=== PATIENT | male | born 1970 | race Caucasian/White ===

== ENCOUNTER 2020-07-03 10:18 | Emergency (ER) | payer OTHER ==
[2020-07-03 10:29] VITALS: BP 110/72; TEMP 98.2
--- NOTE | 2020-07-03 10:48 | ED ---
Back Pain HPI - General Chief Complaint: Back Pain/Injury Stated Complaint: lower back pain Time Seen by Provider: 07/03/20 10:34 Source: patient Limitations: physical limitation - History of Present Illness Initial Comments: Patient is a 50-year-old male presenting to the emergency department with a chief complaint of back pain. Patient reports the pain started about 4 days ago while he was lifting an object to the upstairs floor. Patient states the pain has been gradually increasing severity and that movement seems to be exacerbating pain especially when he is going from a laying to a standing position. He denies taking any medication to alleviate his symptoms. He denies any saddle anesthesia, urinary retention with overflow incontinence or bowel incontinence. Denies any night sweats or chills. No history of prostate cancer. - Related Data Previous Rx's Medication Instructions Recorded Cyclobenzaprine [Flexeril] 10 mg PO TID PRN #15 tab 07/03/20 Allergies Allergy/AdvReac Type Severity Reaction Status Date / Time Penicillins Allergy Unknown Verified 07/03/20 10:29 Review of Systems ROS Statement: Those systems with pertinent positive or pertinent negative responses have been documented in the HPI. ROS Other: All systems not noted in ROS Statement are negative. Past Medical History Past Medical History: No Reported History History of Any Multi-Drug Resistant Organisms: MRSA Date of last positivie culture/infection: 2012 MDRO Source:: axilla Past Surgical History: Hernia Repair, Orthopedic Surgery Additional Past Surgical History / Comment(s): testicular, left knee, rt ankle Smoking Status: Current every day smoker Past Alcohol Use History: Occasional Past Drug Use History: Marijuana General Exam Limitations: physical limitation General appearance: alert, in no apparent distress Head exam: Present: atraumatic, normocephalic, normal inspection Eye exam: Present: normal appearance, PERRL, EOMI Pupils: Present: normal accommodation ENT exam: Present: normal exam, normal oropharynx, mucous membranes moist, TM's normal bilaterally, normal external ear exam Neck exam: Present: normal inspection, full ROM. Absent: tenderness Respiratory exam: Present: normal lung sounds bilaterally. Absent: respiratory distress, wheezes, rales Cardiovascular Exam: Present: regular rate, normal rhythm, normal heart sounds GI/Abdominal exam: Present: soft. Absent: distended, tenderness, guarding, rebound Extremities exam: Present: normal inspection, full ROM, normal capillary refill. Absent: tenderness Back exam: Present: normal inspection, full ROM, tenderness, muscle spasm, paraspinal tenderness. Absent: vertebral tenderness Neurological exam: Present: alert, oriented X3 Psychiatric exam: Present: normal affect, normal mood Skin exam: Present: warm, dry, intact, normal color Course Vital Signs 07/03/20 07/03/20 10:26 13:30 Temperature 98.2 F Pulse Rate 60 71 Respiratory 18 16 Rate Blood Pressure 110/72 O2 Sat by Pulse 99 99 Oximetry Medical Decision Making - Medical Decision Making Patient is a 50-year-old male presenting to the emergency department with a chief complaint of back pain. I physical examination, patient has left-sided paraspinal tenderness in the upper lumbar region this seems to be exacerbated with forward flexion and alleviated with extension. No cauda equina. No red flags. Patient was given a Lidoderm patch and analgesia. On reevaluation patient reports improvement in symptoms. Patient was also concern for possible kidney stone and was requesting UA. UA was unremarkable. Patient to be discharged with a Tylenol 3 starter pack and advised not to drive or operate heavy machinery when taking medication. He was also given Flexeril. He was advised not to mix both of those medications together. He was advised to follow with an orthopedic surgeon. He was also given instructions on lower back and core exercises. Case discussed with physician. - Lab Data Lab Results 07/03/20 Range/Units 12:10 Urine Color Light Yellow Urine Appearance Clear (Clear) Urine pH 6.0 (5.0-8.0) Ur Specific Mull[place] 1.003 (1.001-1.035) Urine Protein Negative (Negative) Urine Glucose (UA) Negative (Negative) Urine Ketones Negative (Negative) Urine Blood Negative (Negative) Urine Nitrite Negative (Negative) Urine Bilirubin Negative (Negative) Urine Urobilinogen <2.0 (<2.0) mg/dL Ur Leukocyte Esterase Negative (Negative) Disposition Clinical Impression: Mechanical back pain, Strain of lumbar region Disposition: HOME SELF-CARE Condition: Stable Instructions (If sedation given, give patient instructions): Acute Low Back Pain (ED), Lower Back Exercises (ED), Core Strengthening Exercises (ED) Additional Instructions: Follow with an academic guidance specialist. Take prescribed medication as directed. Return to emergency department if symptoms worsen. Prescriptions: Cyclobenzaprine [Flexeril] 10 mg PO TID PRN #15 tab PRN Reason: Muscle Spasm Is patient prescribed a controlled substance at d/c from ED?: No Referrals: None,Stated [Primary Care Provider] - 1-2 days Kapil Edouard MD [STAFF PHYSICIAN] - 1-2 days Time of Disposition: 12:25
[2020-07-03] MEDS ORDERED: LIDOCAINE 5% PATCH TOPICAL STA (11:01)
[2020-07-03] MEDS ORDERED: HYDROcodone/APAP 5-325MG 1 EACH TAB PO STA (11:01)
--- NOTE | 2020-07-03 11:39 | XR ---
EXAMINATION TYPE: XR lumbar spine 2 or 3V DATE OF EXAM: 07/03/2020 CLINICAL HISTORY: Low back pain without known injury. TECHNIQUE: 3 views of the lumbar spine are obtained. COMPARISON: None available. FINDINGS: There are 5 lumbar type vertebral bodies identified. The lumbar spine shows satisfactory alignment without evidence of acute fracture or dislocation. No significant spondylolisthesis. Verteb ral body heights heights are grossly maintained. There is mild to moderate disc height narrowing at L 5-S1. There is moderate facet arthropathy in the lower lumbar spine. IMPRESSION: Mild to moderate L5-S1 spondylosis without acute osseous abnormality.
[2020-07-03] MEDS ORDERED: HYDROcodone/APAP 10-325MG 1 EACH TAB PO ONE (12:01)
[2020-07-03 12:19] LABS: Appearance,Urine Clear (Clear); Bilirubin,Urine Negative (Negative); Blood,Urine Negative (Negative); Color,Urine Light Yellow; Glucose,Urine (UA) Negative (Negative); Ketones,Urine Negative (Negative); Leukocyte Esterase,Urine Negative (Negative); Nitrite,Urine Negative (Negative); Protein,Urine Negative (Negative); Specific Gravity,Urine 1.003 (1.001-1.035); Urobilinogen,Urine <2.0 mg/dL (<2.0)
[2020-07-03] MEDS ORDERED: CYCLOBENZAPRINE 10MG STARTER 3 TAB BTL PO STA (13:06)
[2020-07-03] MEDS ORDERED: ACET/COD 300 MG/30 MG STARTER PACK 6 TAB BTL PO STA (13:06)
[2020-07-03 13:31] VITALS: PULSE 71; RESP 16
== END 2020-07-03 13:31 | disposition home or self-care (01) ==
LOC: EC 10:18
DX: S39.012A Strain of muscle, fascia and tendon of lower back, initial encounter (principal); F17.200 Nicotine dependence, unspecified, uncomplicated; Z88.0 Allergy status to penicillin; Z86.14 Personal history of Methicillin resistant Staphylococcus aureus infection; X50.0XXA Overexertion from strenuous movement or load, initial encounter
CPT/HCPCS: 72100; 81003; 99283

== ENCOUNTER 2020-09-10 18:11 | Emergency (ER) | payer OTHER ==
[2020-09-10 18:24] VITALS: TEMP 98
[2020-09-10] MEDS ORDERED: SODIUM CHLORIDE 0.9% 1,000 ML IV STA (18:44)
--- NOTE | 2020-09-10 18:48 | ED ---
General Adult HPI - General Chief complaint: Dizziness Stated complaint: post op-near syncope Time Seen by Provider: 09/10/20 18:26 Source: patient Mode of arrival: wheelchair Limitations: no limitations - History of Present Illness Initial comments: Dictation was produced using [employer] dictation software. please excuse any grammatical, word or spelling errors. This patient was cared for during a federal and state declared state of emergency secondary to Covid 19 Chief Complaint: 50-year-old male presents with dizziness and tremors History of Present Illness: 80-year-old male. Earlier this morning he had a cyst removed from his scrotum. Patient [facility] Patient does not note a physician Dr. Lam's. Patient states he's had a cyst on his scrotum for several years. He was told by Dr. Lam that he will need a full operation to remove the rest of it. Patient states that since after the procedure he's been feeling tremors. That that perhaps it was from not eating. He tried to eat something and did not feel any better. He contacted one of his family members who is a registered nurse. Here she told him to come to the emergency room to be evaluated. The ROS documented in this emergency department record has been reviewed and confirmed by me. Those systems with pertinent positive or negative responses have been documented in the HPI. All other systems are other negative and/or noncontributory. PHYSICAL EXAM: General Impression: Alert and oriented x3, not in acute distress HEENT: Normocephalic atraumatic, extra-ocular movements intact, pupils equal and reactive to light bilaterally, mucous membranes moist. Cardiovascular: Heart regular rate and rhythm Chest: Able to complete full sentences, no retractions, no tachypnea Abdomen: abdomen soft, non-tender, non-distended, no organomegaly Musculoskeletal: Pulses present and equal in all extremities, no peripheral edema Motor: no focal deficits noted Neurological: CN II-XII grossly intact, no focal motor or sensory deficits noted Skin: Intact with no visualized rashes Psych: Normal affect and mood Scrotum: There is a 2 cm scrotal incision with packing. No perineal induration ED course: 50-year-old male presents with dizziness and tremors. He had a scrotal cyst drainage performed earlier today. Vital signs upon arrival are within acceptable limits. Laboratory evaluation obtained. CBC unremarkable. Coag panel is negative. Metabolic panel is unremarkable. Carotids virus test is negative. Patient given intravenous fluids. She was observed in the emergency department for almost 3 hours. He is reevaluated at 8:45 PM out of a stable medical condition. At this point there is no obvious source of what's causing patient's symptoms. Seems to be in multi-baseline. No high-risk features noted. Patient be discharged. Patient told to follow-up with his primary care physician Dr. Isabel simon for outpatient management of symptoms. EKG interpretation: Ventricular rate 64, normal sinus rhythm, KS interval 156, QRS 94, QTc 443. No KS prolongation, no QTC prolongation, no ST or T-wave changes noted. No old EKG for comparison. Overall, this EKG is unremarkable - Related Data Home Medications Medication Instructions Recorded Confirmed Acetaminophen Tab [Tylenol] 325 mg PO Q4H PRN 09/10/20 09/10/20 Ibuprofen [Motrin Ib] 600 mg PO Q8H PRN 09/10/20 09/10/20 Sulfamethox-Tmp 800-160Mg [Bactrim 2 tab PO Q12HR 09/10/20 09/10/20 DS 800-160 mg] Allergies Allergy/AdvReac Type Severity Reaction Status Date / Time Penicillins Allergy Unknown Verified 09/10/20 19:40 Review of Systems ROS Statement: Those systems with pertinent positive or pertinent negative responses have been documented in the HPI. ROS Other: All systems not noted in ROS Statement are negative. Past Medical History Past Medical History: No Reported History History of Any Multi-Drug Resistant Organisms: MRSA Date of last positivie culture/infection: 2012 MDRO Source:: axilla Past Surgical History: Hernia Repair, Orthopedic Surgery Additional Past Surgical History / Comment(s): testicular, left knee, rt ankle Past Psychological History: No Psychological Hx Reported Smoking Status: Current every day smoker Past Alcohol Use History: Occasional Past Drug Use History: Marijuana General Exam Limitations: no limitations Course Vital Signs 09/10/20 18:20 Temperature 98.0 F Pulse Rate 77 Respiratory 20 Rate Blood Pressure 145/99 O2 Sat by Pulse 100 Oximetry Medical Decision Making - Lab Data Result diagrams: 09/10/20 19:03 09/10/20 19:40 Lab Results 09/10/20 09/10/20 09/10/20 Range/Units 19:03 19:03 19:03 WBC 8.3 (3.8-10.6) k/uL RBC 5.07 (4.30-5.90) m/uL Hgb 15.2 (13.0-17.5) gm/dL Hct 46.2 (39.0-53.0) % MCV 91.2 (80.0-100.0) fL MCH 30.1 (25.0-35.0) pg MCHC 33.0 (31.0-37.0) g/dL RDW 13.5 (11.5-15.5) % Plt Count 271 (150-450) k/uL MPV 7.3 Neutrophils % 70 % Lymphocytes % 21 % Monocytes % 5 % Eosinophils % 3 % Basophils % 1 % Neutrophils # 5.8 (1.3-7.7) k/uL Lymphocytes # 1.7 (1.0-4.8) k/uL Monocytes # 0.4 (0-1.0) k/uL Eosinophils # 0.2 (0-0.7) k/uL Basophils # 0.1 (0-0.2) k/uL PT 10.8 (9.0-12.0) sec INR 1.0 (<1.2) Sodium (137-145) mmol/L Potassium (3.5-5.1) mmol/L Chloride (98-107) mmol/L Carbon Dioxide (22-30) mmol/L Anion Gap mmol/L BUN (9-20) mg/dL Creatinine (0.66-1.25) mg/dL Est GFR (CKD-EPI)AfAm (>60 ml/min/1.73 sqM) Est GFR (CKD-EPI)NonAf (>60 ml/min/1.73 sqM) Glucose (74-99) mg/dL Plasma Lactic Acid Manuel 1.8 (0.7-2.0) mmol/L Calcium (8.4-10.2) mg/dL Magnesium (1.6-2.3) mg/dL Total Bilirubin (0.2-1.3) mg/dL AST (17-59) U/L ALT (4-49) U/L Alkaline Phosphatase (38-126) U/L C-Reactive Protein (<10.0) mg/L Total Protein (6.3-8.2) g/dL Albumin (3.5-5.0) g/dL Coronavirus (PCR) (Not Detectd) 09/10/20 09/10/20 Range/Units 19:03 19:40 WBC (3.8-10.6) k/uL RBC (4.30-5.90) m/uL Hgb (13.0-17.5) gm/dL Hct (39.0-53.0) % MCV (80.0-100.0) fL MCH (25.0-35.0) pg MCHC (31.0-37.0) g/dL RDW (11.5-15.5) % Plt Count (150-450) k/uL MPV Neutrophils % % Lymphocytes % % Monocytes % % Eosinophils % % Basophils % % Neutrophils # (1.3-7.7) k/uL Lymphocytes # (1.0-4.8) k/uL Monocytes # (0-1.0) k/uL Eosinophils # (0-0.7) k/uL Basophils # (0-0.2) k/uL PT (9.0-12.0) sec INR (<1.2) Sodium 136 L (137-145) mmol/L Potassium 4.3 (3.5-5.1) mmol/L Chloride 107 (98-107) mmol/L Carbon Dioxide 24 (22-30) mmol/L Anion Gap 5 mmol/L BUN 11 (9-20) mg/dL Creatinine 1.80 H (0.66-1.25) mg/dL Est GFR (CKD-EPI)AfAm 49 (>60 ml/min/1.73 sqM) Est GFR (CKD-EPI)NonAf 43 (>60 ml/min/1.73 sqM) Glucose 81 (74-99) mg/dL Plasma Lactic Acid Manuel (0.7-2.0) mmol/L Calcium 8.8 (8.4-10.2) mg/dL Magnesium 2.0 (1.6-2.3) mg/dL Total Bilirubin 0.4 (0.2-1.3) mg/dL AST 17 (17-59) U/L ALT 12 (4-49) U/L Alkaline Phosphatase 82 (38-126) U/L C-Reactive Protein 11.3 H (<10.0) mg/L Total Protein 6.5 (6.3-8.2) g/dL Albumin 3.7 (3.5-5.0) g/dL Coronavirus (PCR) Not Detected (Not Detectd) Disposition Clinical Impression: Dizziness, Occasional tremors Disposition: HOME SELF-CARE Condition: Good Instructions (If sedation given, give patient instructions): Dizziness (ED), Dehydration (ED) Additional Instructions: Your creatinine is 1.8. You need to have this followed up with your primary care doctor. Please hydrate yourself as much as possible. Is patient prescribed a controlled substance at d/c from ED?: No Referrals: Fitz White MD [STAFF PHYSICIAN] - 1-2 days Time of Disposition: 20:50
[2020-09-10 19:26] LABS: Basophils # (A) 0.1 k/uL (0-0.2); Basophils % (A) 1 %; Eosinophils # (A) 0.2 k/uL (0-0.7); Eosinophils % (A) 3 %; HCT 46.2 % (39.0-53.0); HGB 15.2 gm/dL (13.0-17.5); Lymphocytes # (A) 1.7 k/uL (1.0-4.8); Lymphocytes % (A) 21 %; MCH 30.1 pg (25.0-35.0); MCV 91.2 fL (80.0-100.0); Mean Platelet Volume 7.3; Monocytes # (A) 0.4 k/uL (0-1.0); Monocytes % (A) 5 %; Neutrophils # (A) 5.8 k/uL (1.3-7.7); Neutrophils % (A) 70 %; Platelet Count 271 k/uL (150-450); RBC 5.07 m/uL (4.30-5.90); RDW 13.5 % (11.5-15.5); WBC 8.3 k/uL (3.8-10.6)
[2020-09-10 19:31] LABS: Prothrombin Time 10.8 sec (9.0-12.0)
[2020-09-10 20:29] LABS: Albumin 3.7 g/dL (3.5-5.0); C Reactive Protein 11.3 mg/L (<10.0); Calcium 8.8 mg/dL (8.4-10.2); Potassium 4.3 mmol/L (3.5-5.1); Total Bilirubin 0.4 mg/dL (0.2-1.3); Total Protein 6.5 g/dL (6.3-8.2)
[2020-09-10 20:57] VITALS: BP 124/69; PULSE 78; RESP 18
== END 2020-09-10 20:57 | disposition home or self-care (01) ==
LOC: EC 18:11
DX: Z03.818 Encounter for observation for suspected exposure to other biological agents ruled out (principal); R42 Dizziness and giddiness; F17.200 Nicotine dependence, unspecified, uncomplicated; Z88.0 Allergy status to penicillin
CPT/HCPCS: 36415; 80053; 83605; 83735; 84145; 85025; 85610; 86140; 87040; 87635; 93005; 96360; 96361; 99284

== ENCOUNTER → 2020-10-20 | Outpatient (CLI) | payer OTHER ==
--- NOTE | 2020-10-20 14:06 | XR ---
Left knee HISTORY: M 25.569 4 views of left knee Marked osteoarthritic change is present, mild lateral subluxation suspected at the knee joint. There is marginal spurring. Joint space loss is present tricompartmentally. No sizable joint effusion. No f racture or dislocation. Bone mineralization maintained. IMPRESSION: Osteoarthritis.
--- NOTE | 2020-10-20 14:08 | XR ---
EXAMINATION TYPE: XR chest 2V DATE OF EXAM: 10/20/2020 COMPARISON: Prior chest x-ray 03/13/2011 HISTORY: COPD, J 44.9 TECHNIQUE: Frontal and lateral views of the chest are obtained. FINDINGS: There is no focal air space opacity, pleural effusion, or pneumothorax seen. The cardiac silhouette size is within normal limits. The osseous structures are intact. IMPRESSION: No acute cardiopulmonary process.
== END | disposition home or self-care (01) ==
LOC: RADXRMAIN 13:12
PROVIDERS: ATTEND Family Medicine
DX: M17.12 Unilateral primary osteoarthritis, left knee (principal); J44.9 Chronic obstructive pulmonary disease, unspecified
CPT/HCPCS: 71046

== ENCOUNTER → 2020-11-09 | Outpatient (CLI) | payer OTHER ==
--- NOTE | 2020-11-10 23:03 | MR ---
EXAMINATION TYPE: MR knee LT wo con DATE OF EXAM: 11/09/2020 COMPARISON: None HISTORY: Lt knee pain Multiplanar multiecho imaging of the left knee was performed without contrast. There is narrowing of the joint spaces and more severe in the lateral joint space. There is significa nt thinning of the articular cartilage. There is a moderate knee joint effusion. There is extensive s purring of the femoral and tibial condyles. There is significant thinning of the medial meniscus with large horizontal tear of the posterior horn medial meniscus. There is some truncation of the anterio r horn medial meniscus. There is some thinning of the lateral meniscus without a complete tear. There is complete tear of the anterior cruciate ligament. There is some deformity of the posterior cr uciate ligament that could relate to partial tear. The patella is intact. The tibial spines are intact. I see no focal bone destruction. There is no evidence of a fracture. Th e collateral ligaments are intact. IMPRESSION: Moderately severe osteoarthritis. Complex tear of the posterior horn medial meniscus. Degenerative th inning of the menisci. Complete tear anterior cruciate ligament. Knee joint effusion.
== END | disposition home or self-care (01) ==
LOC: RADMRIMAIN 10:42
PROVIDERS: ATTEND Family Medicine
DX: M17.12 Unilateral primary osteoarthritis, left knee (principal); S83.232A Complex tear of medial meniscus, current injury, left knee, initial encounter; S83.512A Sprain of anterior cruciate ligament of left knee, initial encounter

== ENCOUNTER 2020-11-13 21:28 | Emergency (ER) | payer OTHER ==
[2020-11-13 21:34] VITALS: BP 144/77; PULSE 82; RESP 16; TEMP 97.6
--- NOTE | 2020-11-13 22:52 | US ---
EXAMINATION TYPE: US scrotum with doppler. Grayscale and color Doppler Duplex imaging performed of elsi garber scrotum. DATE OF EXAM: 11/13/2020 COMPARISON: US 2010 CLINICAL HISTORY: recently removed cyst. Recent surgery on Nov.01 to remove cyst, scrotal pain and swelling since surgery EXAM MEASUREMENTS: TESTICLES: Right Testicle: 3.9 x 2.3 x 3.0 cm Left Testicle: 3.7 x 2.2 x 3.1 cm EPIDIDYMIS HEAD: Right Epididymis: 2.2 x 1.5 x 4.3 cm Left Epididymis: 1.1 x 1.2 x 1.2 cm Doppler performed to assess for testicular vascularity; good bilateral arterial flow is seen. Unabl e to obtain venous flow in bilateral testicles. Presence of hydroceles: no Presence of varicoceles: no Right epididymis: multiple cysts with largest measuring 2.5cm IMPRESSION: Multiple right side epididymal cyst. No evidence of testicular torsion or mass. No free f luid.
--- NOTE | 2020-11-13 22:56 | ED ---
Skin/Abscess/FB HPI - General Chief complaint: Skin/Abscess/Foreign Body Stated complaint: Post Op Infection Time Seen by Provider: 11/13/20 21:35 Source: patient Mode of arrival: ambulatory Limitations: no limitations - History of Present Illness Initial comments: 50-year-old male presents to emergency Department with a chief complaint of testicular pain. Patient reports about 2 weeks ago a cyst was removed from his scrotum by Dr. Mcgrath. Patient reports 5 days ago he had the drain also removed from his testicles. He states the sutures are still intact. States he has an appointment in 3 days to see the urologist. Patient reports yesterday's noticed some white discharge near the incision site. He does report some testicular pain but denies any swelling or erythema of the testicles. Denies any nausea or vomiting or abdominal pain. Denies any infectious or obstructive urinary symptoms. Denies any penile discharge.denies fevers or chills. - Related Data Home Medications Medication Instructions Recorded Confirmed Sulfamethox-Tmp 800-160Mg [Bactrim 1 tab PO BID 09/10/20 11/13/20 DS 800-160 mg] Albuterol Sulfate [Proair Hfa] 2 puff INHALATION RT-Q4H PRN 11/13/20 11/13/20 Meloxicam [Mobic] 7.5 mg PO DAILY PRN 11/13/20 11/13/20 Tiotropium [place] [Spiriva] 1 cap INHALATION RT-DAILY 11/13/20 11/13/20 buPROPion HCL [Wellbutrin SR] 150 mg PO DAILY 11/13/20 11/13/20 Previous Rx's Medication Instructions Recorded Clindamycin [Cleocin] 150 mg PO Q6H #40 capsule 11/13/20 Allergies Allergy/AdvReac Type Severity Reaction Status Date / Time Penicillins Allergy Unknown Verified 11/13/20 22:42 Review of Systems ROS Statement: Those systems with pertinent positive or pertinent negative responses have been documented in the HPI. ROS Other: All systems not noted in ROS Statement are negative. Past Medical History Past Medical History: No Reported History Additional Past Medical History / Comment(s): cyst on scrotum History of Any Multi-Drug Resistant Organisms: MRSA Date of last positivie culture/infection: 2012 MDRO Source:: axilla Past Surgical History: Hernia Repair, Orthopedic Surgery Additional Past Surgical History / Comment(s): testicular, left knee, rt ankle Past Psychological History: No Psychological Hx Reported Smoking Status: Current every day smoker Past Alcohol Use History: Rare Past Drug Use History: None Reported General Exam Limitations: no limitations General appearance: alert, in no apparent distress Head exam: Present: atraumatic, normocephalic, normal inspection Eye exam: Present: normal appearance, PERRL, EOMI Pupils: Present: normal accommodation ENT exam: Present: normal exam, normal oropharynx, mucous membranes moist Neck exam: Present: normal inspection, full ROM. Absent: tenderness Respiratory exam: Present: normal lung sounds bilaterally. Absent: respiratory distress Cardiovascular Exam: Present: regular rate, normal rhythm, normal heart sounds GI/Abdominal exam: Present: soft. Absent: distended, tenderness, guarding, rebound exam: Present: testicular tenderness (mild). Absent: normal inspection (well-healing incision site of the scrotum near the perineum. Very small amount of white discharge noted. No significant erythematous changes. No testicular swelling.), urethral discharge, scrotal swelling Extremities exam: Present: normal inspection, full ROM. Absent: tenderness Back exam: Present: normal inspection, full ROM. Absent: tenderness Neurological exam: Present: alert, oriented X3 Psychiatric exam: Present: normal affect, normal mood Skin exam: Present: warm, dry, intact, normal color Course Vital Signs 11/13/20 21:29 Temperature 97.6 F Pulse Rate 82 Respiratory 16 Rate Blood Pressure 144/77 O2 Sat by Pulse 100 Oximetry Medical Decision Making - Medical Decision Making 50-year-old male presents to emergency Department with a chief complaint of testicular pain. On physical examination, there is small amount of white discharge. Incision site but no surrounding erythema. He does have mild testicular tenderness but there is no scrotal swelling. Ultrasound was scrotal reveals multiple right-sided epididymal cyst but no signs of torsion or mass.CBC CMP unremarkable. Lactic acid within normal limits. Wound culture pending. Blood culture pending. Vital signs are stable. Patient advised to stop taking the Bactrim and will be started on clindamycin. Will be discharged with Tolectin 3 starter pack. Advised to follow up with Dr. Mcgrath in outpatient setting. Return primers were thoroughly discussed the patient was understanding and agreeable. Case discussed with - Lab Data Result diagrams: 11/13/20 23:00 11/13/20 23:00 Lab Results 11/13/20 11/13/20 11/13/20 Range/Units 23:00 23:00 23:00 WBC 9.4 (3.8-10.6) k/uL RBC 5.06 (4.30-5.90) m/uL Hgb 15.3 (13.0-17.5) gm/dL Hct 45.7 (39.0-53.0) % MCV 90.3 (80.0-100.0) fL MCH 30.2 (25.0-35.0) pg MCHC 33.4 (31.0-37.0) g/dL RDW 14.3 (11.5-15.5) % Plt Count 300 (150-450) k/uL MPV 6.7 Neutrophils % 65 % Lymphocytes % 21 % Monocytes % 8 % Eosinophils % 5 % Basophils % 1 % Neutrophils # 6.1 (1.3-7.7) k/uL Lymphocytes # 2.0 (1.0-4.8) k/uL Monocytes # 0.7 (0-1.0) k/uL Eosinophils # 0.4 (0-0.7) k/uL Basophils # 0.1 (0-0.2) k/uL Sodium 135 L (137-145) mmol/L Potassium 4.8 (3.5-5.1) mmol/L Chloride 102 (98-107) mmol/L Carbon Dioxide 25 (22-30) mmol/L Anion Gap 8 mmol/L BUN 14 (9-20) mg/dL Creatinine 1.20 (0.66-1.25) mg/dL Est GFR (CKD-EPI)AfAm 81 (>60 ml/min/1.73 sqM) Est GFR (CKD-EPI)NonAf 70 (>60 ml/min/1.73 sqM) Glucose 88 (74-99) mg/dL Plasma Lactic Acid Manuel 1.5 (0.7-2.0) mmol/L Calcium 9.3 (8.4-10.2) mg/dL Total Bilirubin 0.4 (0.2-1.3) mg/dL AST 25 (17-59) U/L ALT 37 (4-49) U/L Alkaline Phosphatase 100 (38-126) U/L Total Protein 7.0 (6.3-8.2) g/dL Albumin 4.1 (3.5-5.0) g/dL Disposition Clinical Impression: Scrotal pain Disposition: HOME SELF-CARE Condition: Stable Instructions (If sedation given, give patient instructions): Scrotal Pain (ED) Additional Instructions: follow-up with Dr. Mcgrath. Take prescribed medication as directed. Return to emergency department if symptoms worsen. Prescriptions: Clindamycin [Cleocin] 150 mg PO Q6H #40 capsule Is patient prescribed a controlled substance at d/c from ED?: No Referrals: Iftikhar Ruggiero MD [Primary Care Provider] - 1-2 days Time of Disposition: 23:31
[2020-11-13 23:14] LABS: Basophils # (A) 0.1 k/uL (0-0.2); Basophils % (A) 1 %; Eosinophils # (A) 0.4 k/uL (0-0.7); Eosinophils % (A) 5 %; HCT 45.7 % (39.0-53.0); HGB 15.3 gm/dL (13.0-17.5); Lymphocytes % (A) 21 %; MCH 30.2 pg (25.0-35.0); MCHC 33.4 g/dL (31.0-37.0); MCV 90.3 fL (80.0-100.0); Mean Platelet Volume 6.7; Monocytes # (A) 0.7 k/uL (0-1.0); Monocytes % (A) 8 %; Neutrophils # (A) 6.1 k/uL (1.3-7.7); Neutrophils % (A) 65 %; Platelet Count 300 k/uL (150-450); RBC 5.06 m/uL (4.30-5.90); RDW 14.3 % (11.5-15.5); WBC 9.4 k/uL (3.8-10.6)
[2020-11-13 23:17] LABS: Albumin 4.1 g/dL (3.5-5.0); Calcium 9.3 mg/dL (8.4-10.2); Potassium 4.8 mmol/L (3.5-5.1); Total Bilirubin 0.4 mg/dL (0.2-1.3)
[2020-11-13] MEDS ORDERED: ACET/COD 300 MG/30 MG STARTER PACK 6 TAB BTL PO STA (23:26)
== END 2020-11-13 23:41 | disposition home or self-care (01) ==
LOC: EC 21:28
DX: N50.82 Scrotal pain (principal); F17.200 Nicotine dependence, unspecified, uncomplicated; Z88.0 Allergy status to penicillin; Z86.14 Personal history of Methicillin resistant Staphylococcus aureus infection
CPT/HCPCS: 36415; 76870; 80053; 83605; 85025; 87040; 87070; 87205; 93975; 99283

== ENCOUNTER 2020-12-29 08:08 | Day surgery (SDC) | payer OTHER ==
[2020-12-24 15:50] VITALS: BMI 24.3
--- NOTE | 2020-12-29 06:26 | P.GSHP ---
History of Present Illness H&P Date: 12/29/20 CHIEF COMPLAINT: Colon screen HISTORY OF PRESENT ILLNESS: The patient is a 50-year-old male who presents for colon screen. Lower endoscopy was offered for further evaluation and management. PAST MEDICAL HISTORY: Please see list. PAST SURGICAL HISTORY: Please see list. MEDICATIONS: Please see list. ALLERGIES: Please see list. SOCIAL HISTORY: No illicit drug use FAMILY HISTORY: No reports of Crohn disease or ulcerative colitis. REVIEW OF ORGAN SYSTEMS: CONSTITUTIONAL: No reports of fevers or chills. PHYSICAL EXAM: VITAL SIGNS: Stable GENERAL: Well-developed pleasant in no acute distress. HEENT: No scleral icterus. Extraocular movements grossly intact. Moist buccal mucosa. NECK: Supple without lymphadenopathy. CHEST: Unlabored respirations. Equal bilateral excursions. CARDIOVASCULAR: Regular rate and rhythm. Distal 2+ pulses. ABDOMEN: Soft, nontender, nondistended. MUSCULOSKELETAL: No clubbing, cyanosis, or edema. ASSESSMENT: 1. Colon screen. PLAN: 1. Recommend proceeding with a lower endoscopy Past Medical History Past Medical History: Osteoarthritis (OA) Additional Past Medical History / Comment(s): Cyst on scrotum removed recently, now infected and on antibiotics. History of Any Multi-Drug Resistant Organisms: MRSA Date of last positivie culture/infection: 2012 MDRO Source:: axilla Past Surgical History: Hernia Repair, Orthopedic Surgery Additional Past Surgical History / Comment(s): Surgery for twisted testicule, left knee surgery, right ankle surgery, cyst removed from scrotum, MRSA removed armpit in 2012. Past Anesthesia/Blood Transfusion Reactions: No Reported Reaction Past Psychological History: No Psychological Hx Reported Smoking Status: Current every day smoker Past Alcohol Use History: Rare Additional Past Alcohol Use History / Comment(s): Has been smoking since 13 yrs old, cutting back, used to smoke 2 PPD, now smokes 1 pack every 2 days. Past Drug Use History: None Reported - Past Family History Father Family Medical History: No Reported History Medications and Allergies Home Medications Medication Instructions Recorded Confirmed Type Albuterol Sulfate [Proair Hfa] 2 puff INHALATION RT-Q4H PRN 11/13/20 12/24/20 History buPROPion HCL [Wellbutrin SR] 150 mg PO DAILY 11/13/20 12/24/20 History Ciprofloxin (Unknown Dose) 1 tab PO DIRECTED 12/24/20 12/24/20 History Allergies Allergy/AdvReac Type Severity Reaction Status Date / Time bee venom protein (honey bee) Allergy Unknown Verified 12/24/20 15:54 Penicillins Allergy Unknown Verified 12/24/20 15:29
[~2020-12-29 08:08] MED LIST: LACTATED RINGERS 1,000 ML IV SCH; LIDOCAINE 1% (10MG/ML) FOR IV START INTRADERMA PRN
[2020-12-29 09:11] VITALS: TEMP 98.3
[2020-12-29] MEDS ORDERED: PROPOFOL 10 MG/ML 20 ML VIAL IV ONE (09:24)
[2020-12-29 10:00] VITALS: PULSE 68; RESP 18
[2020-12-29 10:01] VITALS: BP 109/70
--- NOTE | 2020-12-29 10:31 | P.PCN ---
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 ANESTHESIA: MAC. INDICATIONS: The patient is a 50-year-old male who presents for his first colonoscopy exam. His father had colon polyps removed via colon resection. Benefits and risks were described and informed consent was obtained. DESCRIPTION OF PROCEDURE: The patient had undergone Suprep. The patient had been brought into the o perating room and laid in the left lateral decubitus position. After adequate intravenous sedation, the rectum was examined with 2% lidocaine jelly. The prostate was unremarkable. No external hemorrhoids were encountered. The rectal tone was within normal limits. No lesions were palpated in the rectal vault. An Olympus colonoscope was advanced until the cecum, ileocecal valve and appendiceal orifice were clearly viewed. The prep was good. Dark effluent consistent with melanoma was identified in the proximal to distal colon. Sigmoid diverticulosis without bleeding was encountered. A few AVMs along the sigmoid colon identify without bleeding. Colonic polyps were found and removed. No evidence of focal colitis was found. Retroflexion of the scope demonstrated grade 1 internal hemorrhoids without active bleeding or inflammation. The colon was desufflated. The patient had tolerated the procedure well. Withdrawal time was over 6 minutes. FINDINGS: Aronchick preparation quality scale 2 (1-5) Internal hemorrhoids, grade 1 No external hemorrhoids Scatterd arteriovenous malformations without bleeding Sigmoid diverticulosis without bleeding Removal of 6 polyps: - Snare polypectomy 10 cm from the anal verge 3, 5 mm to 8 mm tubulovillous adenoma polyps, rectum - Snare polypectomy 15 cm from the anal verge, 5 mm flat villous adenoma polyp, sigmoid colon - Snare polypectomy 20 cm from the anal verge, 3 mm flat villous adenoma polyp, sigmoid colon - Cold forceps biopsy at ascending colon, 5 mm polyp. No focal colitis. RECOMMENDATIONS: Repeat colonoscopy 2 years, 2022 Plan - Discharge Summary Discharge Rx Participant: No New Discharge Prescriptions: New Omeprazole [PriLOSEC] 40 mg PO DAILY #30 cap Continue buPROPion HCL [Wellbutrin SR] 150 mg PO DAILY Albuterol Sulfate [Proair Hfa] 2 puff INHALATION RT-Q4H PRN PRN Reason: Shortness Of Breath Ciprofloxin (Unknown Dose) 1 tab PO DIRECTED Discharge Medication List Albuterol Sulfate [Proair Hfa] 2 puff INHALATION RT-Q4H PRN 11/13/20 [History] buPROPion HCL [Wellbutrin SR] 150 mg PO DAILY 11/13/20 [History] Ciprofloxin (Unknown Dose) 1 tab PO DIRECTED 12/24/20 [History] Omeprazole [PriLOSEC] 40 mg PO DAILY #30 cap 12/29/20 [Rx] Follow up Appointment(s)/Referral(s): Clare Conn MD [STAFF PHYSICIAN] - 01/04/21 8:00 am Patient Instructions/Handouts: *[facility] - (Anesthesia) Endoscopy Discharge Instructions, Diverticulosis (DC), Colorectal Polyps (DC), Diverticulosis Diet (GEN), Colonoscopy (DC), Melena (ED) Activity/Diet/Wound Care/Special Instructions: Repeat colonoscopy 2 years, 2022. Recommend upper endoscopy for melena and GI bleeding Discharge Disposition: HOME SELF-CARE
[2020-12-29 11:47] LABS: Basophils # (A) 0.1 k/uL (0-0.2); Basophils % (A) 1 %; Eosinophils # (A) 0.3 k/uL (0-0.7); Eosinophils % (A) 3 %; HCT 44.6 % (39.0-53.0); HGB 15.1 gm/dL (13.0-17.5); Lymphocytes # (A) 1.5 k/uL (1.0-4.8); Lymphocytes % (A) 16 %; MCH 30.8 pg (25.0-35.0); MCHC 33.7 g/dL (31.0-37.0); MCV 91.3 fL (80.0-100.0); Mean Platelet Volume 6.6; Monocytes # (A) 0.5 k/uL (0-1.0); Monocytes % (A) 5 %; Neutrophils # (A) 7.2 k/uL (1.3-7.7); Neutrophils % (A) 75 %; Platelet Count 286 k/uL (150-450); RBC 4.89 m/uL (4.30-5.90); RDW 13.7 % (11.5-15.5); WBC 9.6 k/uL (3.8-10.6)
== END 2020-12-29 11:06 | disposition home or self-care (01) ==
LOC: ORWHC2ENDO 08:08
PROVIDERS: ATTEND Surgery Plastic and Reconstructive Surgery
DX: Z12.11 Encounter for screening for malignant neoplasm of colon (principal); D12.2 Benign neoplasm of ascending colon; K63.5 Polyp of colon; K63.89 Other specified diseases of intestine; D12.6 Benign neoplasm of colon, unspecified; D12.5 Benign neoplasm of sigmoid colon; D12.8 Benign neoplasm of rectum; K92.1 Melena; K57.31 Diverticulosis of large intestine without perforation or abscess with bleeding; Q27.33 Arteriovenous malformation of digestive system vessel; K64.0 First degree hemorrhoids; M19.90 Unspecified osteoarthritis, unspecified site; N49.2 Inflammatory disorders of scrotum; F17.210 Nicotine dependence, cigarettes, uncomplicated; K08.89 Other specified disorders of teeth and supporting structures; K08.409 Partial loss of teeth, unspecified cause, unspecified class; J45.909 Unspecified asthma, uncomplicated; Z86.14 Personal history of Methicillin resistant Staphylococcus aureus infection; Z88.0 Allergy status to penicillin; Z88.1 Allergy status to other antibiotic agents; Z87.2 Personal history of diseases of the skin and subcutaneous tissue; Z98.890 Other specified postprocedural states; Z79.899 Other long term (current) drug therapy; Z91.030 Bee allergy status; Z80.0 Family history of malignant neoplasm of digestive organs; Z83.71 Family history of colonic polyps
CPT/HCPCS: 88305; 85025; 45380; 45385; J2704

== ENCOUNTER 2021-01-12 10:31 | Day surgery (SDC) | payer OTHER ==
[2021-01-10 09:41] VITALS: BMI 24.8
--- NOTE | 2021-01-12 08:32 | P.GSHP ---
History of Present Illness H&P Date: 01/12/21 CHIEF COMPLAINT: GERD HISTORY OF PRESENT ILLNESS: The patient is a 51-year-old male who presents reports gastroesophageal reflux disease. Upper endoscopy was offered for further evaluation and management. PAST MEDICAL HISTORY: Please see list. PAST SURGICAL HISTORY: Please see list. MEDICATIONS: Please see list. ALLERGIES: Please see list. SOCIAL HISTORY: No illicit drug use FAMILY HISTORY: No reports of Crohn disease or ulcerative colitis. REVIEW OF ORGAN SYSTEMS: CONSTITUTIONAL: No reports of fevers or chills. GI: Denies any blood in stools or constipation. PHYSICAL EXAM: VITAL SIGNS: Stable GENERAL: Well-developed and pleasant in no acute distress. HEENT: No scleral icterus. Extraocular movements grossly intact. Moist buccal mucosa. NECK: Supple without lymphadenopathy. CHEST: Unlabored respirations. Equal bilateral excursions. CARDIOVASCULAR: Regular rate and rhythm. Distal 2+ pulses. ABDOMEN: Soft, nondistended. MUSCULOSKELETAL: No clubbing, cyanosis, or edema. ASSESSMENT: 1. Gastroesophageal reflux disease PLAN: 1. Recommend proceeding with an upper endoscopy Past Medical History Past Medical History: Osteoarthritis (OA) Additional Past Medical History / Comment(s): Cyst on scrotum removed-had infection recently tx w/ antibiotics. History of Any Multi-Drug Resistant Organisms: MRSA Date of last positivie culture/infection: 2012 MDRO Source:: axilla Past Surgical History: Hernia Repair, Orthopedic Surgery Additional Past Surgical History / Comment(s): Surgery for twisted testicule, left knee surgery, right ankle surgery, cyst removed from scrotum, MRSA removed armpit in 2012. Past Anesthesia/Blood Transfusion Reactions: No Reported Reaction Smoking Status: Current every day smoker - Past Family History Father Family Medical History: No Reported History Medications and Allergies Home Medications Medication Instructions Recorded Confirmed Type Albuterol Sulfate [Proair Hfa] 2 puff INHALATION RT-Q4H PRN 11/13/20 01/10/21 History buPROPion HCL [Wellbutrin SR] 150 mg PO QAM 11/13/20 01/10/21 History Acetaminophen-Codeine 300-30mg 1 tab PO Q6H PRN 01/10/21 01/10/21 History [Tylenol w/codeine #3] Omeprazole [PriLOSEC] 40 mg PO QAM 01/10/21 01/10/21 History Allergies Allergy/AdvReac Type Severity Reaction Status Date / Time bee venom protein (honey bee) Allergy Unknown Verified 01/10/21 09:34 Penicillins Allergy Unknown Verified 01/10/21 09:34
[2021-01-12 11:56] VITALS: RESP 16; TEMP 98.5
[2021-01-12] MEDS ORDERED: PROPOFOL 10 MG/ML 20 ML VIAL IV ONE (12:54)
[2021-01-12] MEDS ORDERED: LIDOCAINE 1% INJ 10MG/ML (20 ML MDV) ONE (12:54)
--- NOTE | 2021-01-12 13:12 | P.PCN ---
Date of Procedure: 01/12/21 Description of Procedure: PREOPERATIVE DIAGNOSIS: History of gastrointestinal bleed with melena Anemia POSTOPERATIVE DIAGNOSIS: History of gastrointestinal bleed with melena Anemia Gastroesophageal reflux disease. OPERATION: Esophagogastroduodenoscopy SURGEON: Clare Conn MD ANESTHESIA: MAC. INDICATIONS: The patient is a 51-year-old male who presents with a history of gastrointestinal bleed with melena 2 weeks ago. Upper endoscopy was offered for therapeutic and diagnostic intervention. Benefits and risks of the procedure were described. Informed consent was obtained. DESCRIPTION: The patient was brought into the endoscopy suite and laid in the left lateral decubitus position. An Olympus gastroscope was passed along the posterior oropharynx down to the distal esophagus where the squamocolumnar junction was encountered at 40 cm from the incisors. The stomach was entered and no bile reflux was found. Additional findings are listed below. The first through third portion of the duodenum was examined and unremarkable. Retroflexion of the scope confirmed Hill grade 2 lower esophageal valve. The squamocolumnar junction demonstrated LA grade B erosive esophagitis. The stomach was desufflated. The patient tolerated the procedure well. FINDINGS: Squamocolumnar junction 40 cm from the incisors. Diaphragmatic hiatus at 40 cm. Hill grade 42lower esophageal valve. LA grade B erosive esophagitis. No active duodenitis. Chronic gastritis RECOMMENDATIONS: Upper endoscopy as needed. Plan - Discharge Summary Discharge Rx Participant: No New Discharge Prescriptions: Continue buPROPion HCL [Wellbutrin SR] 150 mg PO QAM Albuterol Sulfate [Proair Hfa] 2 puff INHALATION RT-Q4H PRN PRN Reason: Shortness Of Breath Omeprazole [PriLOSEC] 40 mg PO QAM Acetaminophen-Codeine 300-30mg [Tylenol w/codeine #3] 1 tab PO Q6H PRN PRN Reason: Pain Discharge Medication List Albuterol Sulfate [Proair Hfa] 2 puff INHALATION RT-Q4H PRN 11/13/20 [History] buPROPion HCL [Wellbutrin SR] 150 mg PO QAM 11/13/20 [History] Acetaminophen-Codeine 300-30mg [Tylenol w/codeine #3] 1 tab PO Q6H PRN 01/10/21 [History] Omeprazole [PriLOSEC] 40 mg PO QAM 01/10/21 [History] Follow up Appointment(s)/Referral(s): Clare Conn MD [STAFF PHYSICIAN] - 01/25/21 3:30 pm (Appointment already made) Patient Instructions/Handouts: *[facility] - (Anesthesia) Endoscopy Discharge Instructions Discharge Disposition: HOME SELF-CARE
[2021-01-12 13:30] VITALS: BP 113/74; PULSE 89
== END 2021-01-12 13:38 | disposition home or self-care (01) ==
LOC: ORWHC2ENDO 10:31
PROVIDERS: ATTEND Surgery Plastic and Reconstructive Surgery
DX: K22.10 Ulcer of esophagus without bleeding (principal); K29.50 Unspecified chronic gastritis without bleeding; K21.9 Gastro-esophageal reflux disease without esophagitis; D64.9 Anemia, unspecified; K92.1 Melena; M19.90 Unspecified osteoarthritis, unspecified site; Z86.14 Personal history of Methicillin resistant Staphylococcus aureus infection; Z98.890 Other specified postprocedural states; F17.200 Nicotine dependence, unspecified, uncomplicated; Z79.891 Long term (current) use of opiate analgesic; Z79.899 Other long term (current) drug therapy; Z88.0 Allergy status to penicillin; Z91.030 Bee allergy status; J44.9 Chronic obstructive pulmonary disease, unspecified
CPT/HCPCS: 43235; J2001; J2704

== ENCOUNTER → 2021-06-27 | Outpatient (CLI) | payer OTHER ==
--- NOTE | 2021-06-28 07:03 | US ---
EXAMINATION TYPE: US abd limited kidneys/bladder DATE OF EXAM: 06/27/2021 COMPARISON: CT 03/07/2011 CLINICAL HISTORY: N17.9 ACUTE KIDNEY FAILURE. Patient states he has a "blood clot in whatever gives h is liver blood", however then he stated it was on the left side and had to do with his left kidney. N o imaging at this facility. Nothing on patient's order with any further information. Patient states h e ate 4 hours ago. EXAM MEASUREMENTS: Liver Length: 13.0 cm Gallbladder Wall: 0.33 cm CBD: 0.5 cm Right Kidney: 11.0 x 5.5 x 5.0 cm Left Kidney: 11.8 x 4.5 x 5.3 cm Pancreas: Obscured by bowel gas Liver: wnl. Visualized portal vein appears patent and has hepatopedal blood flow Gallbladder: Contracted CBD: wnl as visualized, distal portion obscured by bowel gas Right Kidney: No hydronephrosis or masses seen Left Kidney: No hydronephrosis or masses seen Bladder: wnl Bilateral Jets Seen No Suboptimal evaluation of pancreas on initial images due to overlying bowel gas. Visualized portion of liver is within normal limits. Gallbladder is contracted in appearance without shadowing mobile intr aluminal gallstones. No biliary dilatation. Kidneys are symmetric and within normal limits in size wi thout hydronephrosis. Urinary bladder is not greatly distended but there is no intraluminal mass or w all thickening. IMPRESSION: No hydronephrosis noted bilaterally.
== END | disposition home or self-care (01) ==
LOC: RADUSWWP 16:45
PROVIDERS: ATTEND Family Medicine
DX: N17.9 Acute kidney failure, unspecified (principal)
CPT/HCPCS: 76705; 76770

== ENCOUNTER → 2021-07-27 | Outpatient (CLI) | payer OTHER ==
--- NOTE | 2021-07-27 10:50 | US ---
EXAMINATION TYPE: US abd limited kidneys/bladder DATE OF EXAM: 07/27/2021 COMPARISON: NONE CLINICAL HISTORY: 51-year-old male N17.90 ACUTE KIDNEY FAILURE. Abnormal liver enzymes, Left kidney i njury per patient TECHNIQUE: Multiple sonographic images of the right upper quadrant, bilateral kidneys, and bladder ar e obtained. FINDINGS: EXAM MEASUREMENTS: Liver Length: 12.2 cm Gallbladder Wall: 0.2 cm CBD: 0.3 cm Right Kidney: 11.7 x 4.9 x 4.8 cm Left Kidney: 11.1 x 5.6 x 5.6 cm Pancreas: Suboptimal visualization due to shadowing from bowel gas. Liver: Slightly hypoechoic appearance may be a technical basis. Limited detailed assessment due to la rge body habitus. Gallbladder: No abnormal distention, wall thickening, pericholecystic fluid, or shadowing calculi. CBD: wnl Kidney: No hydronephrosis. Bladder: Partially distended bladder shows no gross abnormality. Bilateral Jets Seen Yes IMPRESSION: 1. Slightly hypoechoic appearance to the liver may be on a technical basis or could represent hepatit is. Clinically correlate. 2. No gallstones or biliary ductal dilatation. 3. No hydronephrosis. 4. No gross abnormality of the partially urine distended bladder.
== END | disposition home or self-care (01) ==
LOC: RADUSWWP 08:15
PROVIDERS: ATTEND Family Medicine
DX: N17.0 Acute kidney failure with tubular necrosis (principal)
CPT/HCPCS: 76705; 76770

== ENCOUNTER → 2021-08-15 | Outpatient (CLI) | payer OTHER | END | disposition home or self-care (01) | LOC: LABPAT 12:12 | PROVIDERS: ATTEND Orthopaedic Surgery | DX: Z01.812 Encounter for preprocedural laboratory examination (principal); M17.12 Unilateral primary osteoarthritis, left knee; Z22.322 Carrier or suspected carrier of Methicillin resistant Staphylococcus aureus | CPT/HCPCS: 87070 ==

== ENCOUNTER → 2021-08-15 | Outpatient (CLI) | payer OTHER ==
[2021-08-15 13:40] LABS: Partial Thromboplastin Time 26.6 sec (22.0-30.0); Prothrombin Time 10.4 sec (9.0-12.0)
--- NOTE | 2021-08-15 13:51 | XR ---
EXAMINATION TYPE: XR chest 2V DATE OF EXAM: 08/15/2021 COMPARISON: Chest x-ray 10/20/2020 HISTORY: Z96.652 PRESENCE OF LT ARTIFICIAL KNEE, preop knee replacement TECHNIQUE: Frontal and lateral views of the chest are obtained. FINDINGS: There is no focal air space opacity, pleural effusion, or pneumothorax seen. The cardiac silhouette size is within normal limits. There is eventration of the right hemidiaphragm, slight elev ation The osseous structures are intact. IMPRESSION: No acute cardiopulmonary process.
[2021-08-15 19:24] LABS: Basophils # (A) 0.07 X 10*3/uL (0.00-0.10); Eosinophils # (A) 0.26 X 10*3/uL (0.04-0.35); Eosinophils % (A) 3.6 %; HCT 45.1 % (39.6-50.0); HGB 14.4 g/dL (13.0-17.0); Lymphocytes # (A) 1.65 X 10*3/uL (0.90-5.00); Lymphocytes % (A) 22.6 %; MCH 28.9 pg (27.0-32.0); MCHC 31.9 g/dL (32.0-37.0); MCV 90.6 fL (80.0-97.0); Monocytes # (A) 0.41 X 10*3/uL (0.20-1.00); Monocytes % (A) 5.6 %; Neutrophils # (A) 4.88 X 10*3/uL (1.80-7.70); Neutrophils % (A) 66.7 %; Platelet Count 324 X 10*3/uL (140-440); RBC 4.98 X 10*6/uL (4.40-5.60); RDW 14.4 % (11.5-14.5); WBC 7.31 X 10*3/uL (4.50-10.00)
[2021-08-15 20:33] LABS: African American GFR (CKD) 76.2 (60.0-200.0); Albumin 4.5 g/dL (3.8-4.9); Albumin/Globulin Ratio 1.82 (1.60-3.17); Anion Gap 12.1 mmol/L (4.00-12.00); BUN/Creat Ratio 7.87 Ratio (12.00-20.00); Blood Urea Nitrogen 9.8 mg/dL (9.0-27.0); Calcium 9.7 mg/dL (8.7-10.3); Carbon Dioxide 25.6 mmol/L (21.6-31.8); Globulin 2.4 g/dL (1.6-3.3); Non-African American GFR(CKD) 65.8 (60.0-200.0); Potassium 4.4 mmol/L (3.5-5.5); Total Bilirubin 0.4 mg/dL (0.30-1.20); Total Protein 6.9 g/dL (6.2-8.2)
== END | disposition home or self-care (01) ==
LOC: LABWHC1 12:15
PROVIDERS: ATTEND Nurse Practitioner
DX: Z96.652 Presence of left artificial knee joint (principal)
CPT/HCPCS: 36415; 71046; 80053; 85025; 85610; 85730; 93005

== ENCOUNTER 2021-09-13 05:57 | Observation (INO) | payer OTHER ==
[2021-09-09 11:21] VITALS: BMI 28.3
--- NOTE | 2021-09-12 09:52 | HP ---
HISTORY AND PHYSICAL CHIEF COMPLAINT: Left knee pain. 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 He has anterior medial pain along with swelling and locking. He has been bracing in addition has tried medications and injections with only partial temporary relief. PAST MEDICAL HISTORY: Negative. PAST SURGICAL HISTORY: Significant for left ankle surgery and hernia repair. CURRENT MEDICATIONS: Wellbutrin. ALLERGIES: HE HAS ALLERGIES TO PENICILLIN. FAMILY HISTORY: Negative. SOCIAL HISTORY: Significant for 1 pack per day tobacco use. REVIEW OF SYSTEMS: Sixteen-point review of systems otherwise reviewed and is noncontributory. PHYSICAL EXAMINATION: On examination, the patient approximately 5 foot 11, 174 pounds of mesomorphic habitus. HEENT exam is nonfocal. NECK is supple. He has painless passive motion of his left hip. Straight leg raise is negative. Active motion left knee -4 to 135 degrees of flexion. He has a mild effusion. He is tender about the medial joint line. Collaterals are stable, Melanie is negative, Joleen's is equivocal. He has genu varum alignment. His distal neurovascular exam appears intact in the left lower extremity. Weightbearing notch, lateral and Merchant views left knee obtained in the office show severe medial compartment narrowing with [id number] changes and subchondral sclerosis. IMPRESSION: Left knee severe medial compartment osteoarthrosis. RECOMMENDATIONS: I talked to the patient at length regarding his condition and treatment options. At this point, he is quite symptomatic and limited because of pain despite conservative measures. After thorough discussion, he opts to proceed with surgery. We will plan to proceed with left total knee arthroplasty. We will institute DVT prophylaxis postoperatively. Risks and benefits were discussed at length in layman's terms. MMODL / IJN: [id number] /
[~2021-09-13 05:57] MED LIST changes: +ACETAMINOPHEN TAB 500 MG TAB PO PRN; -LACTATED RINGERS 1,000 ML IV SCH; -LIDOCAINE 1% (10MG/ML) FOR IV START INTRADERMA PRN; +MELOXICAM 7.5 MG TAB PO PRN; +ROPIVACAINE 246.25 MG, EPINEPHrine 0.5 MG, KETOROLAC (30 mg/mL) 30 MG, cloNIDine HCL/PF... MISCELLANE PRN; +TRANEXAMIC ACID 1,000 MG in SODIUM CHLORIDE 0.9% 100 ML IVPB PRN
[2021-09-13] MEDS ORDERED: ONDANSETRON 4 MG/2 ML VIAL IVP ONE ×2 (06:16→07:08)
[2021-09-13] MEDS ORDERED: LIDOCAINE 1% (10MG/ML) FOR IV START INTRADERMA PRN (06:16)
[2021-09-13] MEDS ORDERED: ONDANSETRON 4 MG/2 ML VIAL ONE (06:44)
[2021-09-13] MEDS ORDERED: fentaNYL (PF) 50 MCG/ML 2 ML AMP IV PRN (07:00)
[2021-09-13] MEDS ORDERED: LACTATED RINGERS 1,000 ML IV ONE ×2 (07:07→15:31)
[2021-09-13] MEDS ORDERED: DEXAMETHASONE SOD PHOSPHATE 4 MG/ML 1 ML VIAL IV ONE (07:07)
[2021-09-13] MEDS ORDERED: LIDOCAINE 1% (10MG/ML) FOR IV START INTRADERMA ONE (07:07)
[2021-09-13] MEDS ORDERED: MIDAZOLAM 2 MG/2 ML VIAL IV ONE (07:16)
[2021-09-13] MEDS ORDERED: fentaNYL (PF) 50 MCG/ML 5 ML AMP IV ONE (07:16)
[2021-09-13] MEDS ORDERED: HYDROmorphone (PF) 1 MG/ML ONE (07:50)
[2021-09-13] MEDS ORDERED: SODIUM CHLORIDE 0.9% 100 ML BAG ONE (07:50)
[2021-09-13] MEDS ORDERED: ROPIVACAINE 5 MG/ML 30 ML VIAL ONE (07:50)
[2021-09-13] MEDS ORDERED: PHENYLEPHRINE-0.9% NACL SYG 1,000 MCG/10 ML SYRINGE ONE (07:50)
[2021-09-13] MEDS ORDERED: TRANEXAMIC ACID 1,000 MG/10 ML VIAL ONE (07:50)
[2021-09-13] MEDS ORDERED: SODIUM CHLORIDE 0.9% (PF) 10 ML VIAL ONE (07:50)
[2021-09-13] MEDS ORDERED: LIDOCAINE 1% INJ 10MG/ML (20 ML MDV) ONE (07:50)
[2021-09-13] MEDS ORDERED: ePHEDrine 50 MG/ML 1 ML AMP ONE (07:50)
[2021-09-13] MEDS ORDERED: PROPOFOL 10 MG/ML 20 ML VIAL IV ONE (07:50)
[2021-09-13] MEDS ORDERED: ROCURONIUM 10 MG/ML (5 ML VIAL) IV ONE (07:50)
[2021-09-13] MEDS ORDERED: SUCCINYLCHOLINE CHLORIDE 100 MG/5 ML SYR IV ONE (07:50)
[2021-09-13] MEDS ORDERED: CLINDAMYCIN 150 MG/ML 4 ML VIAL IVPB ONE (08:05)
[2021-09-13] MEDS ORDERED: CLINDAMYCIN 600 MG in SODIUM CHLORIDE 0.9% 1,000 ML IRRIGATION ONE (08:20)
[2021-09-13] MEDS ORDERED: NALOXONE 0.4 MG/ML 1 ML VIAL IV PRN (09:37)
[2021-09-13] MEDS ORDERED: HYDROcodone/APAP 5-325MG 1 EACH TAB PO PRN (09:37)
--- NOTE | 2021-09-13 10:05 | P.OP ---
Date of Procedure: 09/13/21 Preoperative Diagnosis: Left knee severe tricompartmental osteoarthrosis Postoperative Diagnosis: Same Procedure(s) Performed: Left total knee arthroplastycementedposterior stabilized Implants: Depuy Attune size 8 cemented femoral component, size 7 cemented tibial component, 9 mm articular surface, 38 mm cemented patellar component. This is a posterior stabilized implant. Anesthesia: [facility] Surgeon: Leonardo Arreola Inhalation Therapy Teacher #1: Gerhard Reed Estimated Blood Loss (ml): 50 Pathology: other (Bone fragments) Condition: stable Disposition: PACU Indications for Procedure: The patient's 51-year-old male presents with progressive left knee pain secondary to osteoarthrosis despite conservative measures. A discussion of the risks and benefits of operative intervention versus continued conservative measures was made with patient. He opted to proceed with surgery. Operative risks to include infection, neurovascular injury, development of blood clots, fracture, possible component loosening/failure need for subsequent procedures was discussed. Informed consent was obtained. Operative Findings: As below Description of Procedure: The patient was brought to the operating room, and after induction of spinal anesthesia the left lower extremity was prepped and draped in a normal fashion. The tourniquet was inflated to 270 mm marker. A longitudinal incision extending 3 finger breaths above the superior pole of patella extending to the medial aspect the tibial tubercle was then made. The skin and subcutaneous tissues were divided sharply. Electrocautery was used for hemostasis. A medial parapatellar arthrotomy was performed. The medial soft tissues to include the superficial and deep portions of the medial collateral ligament were elevated subperiosteally. The patella was everted. A portion of the retropatellar fat pad was excised sharply. The anterior cruciate ligament was sacrificed. Blunt retractors were placed. A starting hole was made in the distal femur 1 cm anterior to the posterior cruciate ligament origin. An intramedullary femoral guide was then inserted planning on 5 valgus distal cut with 9 mm distal resection. The cutting block was pinned in place. The distal cut was then made. The posterior referencing sizing guide was utilized. I felt size 8 was most appropriate. 3 of external rotation was built into the system and verified off the trans-epicondylar axis and the posterior condyles. The cutting block was pinned in place. The anterior, posterior, and chamfer cuts then made. Bone fragments were removed. The intercondylar guide was placed and the notch cut was made with a sagittal saw. The bone block was removed in one fragment. The trial component was then placed. There is good anterior to posterior and medial to lateral fit. The distal peg holes were drilled. The trial component was removed. Attention was then paid towards preparing the proximal femur. An extra medullary guide was utilized in line with the tibial shaft and second metatarsal distally. I planned on 2 mm resection from the medial compartment. The cutting block was pinned in place. The proximal tibial cut was then made. The bone was removed in one fragment. The remnants of the medial and lateral menisci were excised at the capsular junction with electrocautery. The tibia sized most appropriately at size 7. The trial femoral and tibial components were placed along with a 9 mm articular surface. I was able to obtain full flexion and extension with internal and external rotation. After several flexion and extension cycles, the tibial rotation was marked with electrocautery line with the medial one third of the tibial tubercle. Attention was then paid towards preparing the patella. A patella reamer was utilized taking stem to 14 mm of bone stock. A good flush cut was made. The patella sized most appropriately 38 mm. The peg holes were drilled. The trial components placed. I had good patellofemoral tracking with no hands technique. The trial components were then removed. The tibia was prepared in the appropriate rotation with appropriate drill and keel punch. The posterior osteophytes were removed with a curved osteotome. The flexion and extension gaps were checked and felt to be symmetric at 9 mm. A trial components were then removed. The bony surfaces were prepared with pulsatile lavage and dried. The tibial component was then cemented place was fully seated. Excess cement was removed. The femoral component cemented place and was fully seated. Excess cement was removed. The trial 9 mm articular surface was placed and the knee was put in full extension. The patella component was cemented place. After the cement had sufficiently hardened, the knee was again taken through a range of motion. Again I was able to obtain full flexion and extension with varus and valgus stress. The trial 9 mm articular surface was removed and the final one inserted. This was fully seated. Care was taken to avoid any soft tissue interposition. Pulsatile lavage was again utilized. The medial parapatellar arthrotomy was closed with #2 Ethibond suture. The tourniquet was deflated with approximately 65 minutes total tourniquet time. Final hemostasis was obtained with the cautery. There was minimal bleeding therefore a deep drain was not placed. The subcutaneous tissues were reapproximated with interrupted 2-0 Vicryl sutures. The skin was reapproximated with 3-0 subcuticular strata fix suture. Skin tape and adhesive was applied. A sterile dressing was applied. The patient was awoken from sedation and transferred to recovery room in good condition. Blood loss was estimated at 50 mL. No complications were incurred. Sponge and needle counts were correct at the end of the case. Gerhard BOWEN assisted during the major components of this case to include exposure, bone resection, implantation, and closure.
[2021-09-13] MEDS ORDERED: diphenhydrAMINE 50 MG/ML 1 ML VIAL IVP ONE (10:19)
[2021-09-13] MEDS ORDERED: ROPIVACAINE 0.2%-NS ON-Q PUMP 1,090 MG, EMPTY PAIN BALL 1 EACH MISCELLANE PRN (10:20)
[2021-09-13] MEDS: LACTATED RINGERS 1,000 ML IV SCH ×2 (10:22→23:29)
[2021-09-13] MEDS ORDERED: KETOROLAC 15 MG/ML 1 ML VIAL IVP ONE (10:26)
[2021-09-13] MEDS ORDERED: HYDROmorphone 0.5 MG/0.5 ML SYRINGE IVP ONE ×2 (10:32→10:52)
--- NOTE | 2021-09-13 11:04 | XR ---
EXAMINATION TYPE: XR knee limited LT DATE OF EXAM: 09/13/2021 COMPARISON: NONE TECHNIQUE: Two views submitted HISTORY: Post op FINDINGS: There is a prosthetic knee in near anatomic alignment. There is soft tissue edema and emphysema. IMPRESSION: 1. Postoperative change. Appears in near-anatomic alignment
[2021-09-13] MEDS: HYDROcodone/APAP 7.5-325MG 1 EACH TAB PO PRN ×2 (12:19→18:11)
[2021-09-13] MEDS ORDERED: CLINDAMYCIN 900 MG in DEXTROSE 5% IN WATER 50 ML IVPB ONE ×2 (16:00)
--- NOTE | 2021-09-13 17:48 | P.ANPRN ---
Procedure Note - Anesthesia - Nerve Block Performed Left Adductor Canal Infusion Time Out Performed: Yes Date of Procedure: 09/13/21 Procedure Start Time: :16 Procedure Stop Time: : Location of Patient: PreOp Indication: Acute Post-Operative Pain, Requested by Surgeon Specifically requested for management of pain by DrDang: Frank Arreola Sedation Type: Sedate with meaningful contact maintained Preparation: Sterile Prep, Sterile Dressing Position: Supine Catheter Depth at Skin (cm): 5 Catheter: Indwelling Needle Types: Pajunk Needle Gauge: 20 Ultrasound used to visualize needle placement: Yes Ultrasound used to observe medication spread: Yes Injectate: 0.5% Ropivacaine (see comment for volume) Blood Aspirated: No Pain Paresthesia on Injection Noted: No Resistance on Injection: Normal Image Stored and Saved: Yes Events: Uneventful and Well Tolerated (20cc 0.5% Ropivacaine)
--- NOTE | 2021-09-13 17:50 | P.ANPRN ---
Procedure Note - Anesthesia - Nerve Block Performed Left iPack Single Time Out Performed: Yes Date of Procedure: 09/13/21 Procedure Start Time: : Procedure Stop Time: :32 Location of Patient: PreOp Indication: Acute Post-Operative Pain, Dx/Pain Location, Requested by Surgeon Specifically requested for management of pain by : Leonardo Arreola Sedation Type: Sedate with meaningful contact maintained Preparation: Sterile Prep Position: Supine Catheter: None Needle Types: Mazree Needle Gauge: 20 Ultrasound used to visualize needle placement: Yes Ultrasound used to observe medication spread: Yes Injectate: 0.5% Ropivacaine (see comment for volume) Blood Aspirated: No Pain Paresthesia on Injection Noted: No Resistance on Injection: Normal Image Stored and Saved: Yes Events: Uneventful and Well Tolerated (10cc 0.5% Ropivacaine with 10cc sterile NS)
[2021-09-13 19:48] VITALS: RESP 16
[2021-09-13] MEDS: buPROPion SR 150 MG TABLET.ER PO SCH (19:59)
[2021-09-13] MEDS: HYDROmorphone 0.5 MG/0.5 ML SYRINGE IVP PRN ×2 (19:59→23:05)
[2021-09-13] MEDS: ENOXAPARIN 30 MG/0.3 ML SYRINGE SQ SCH (19:59)
[2021-09-14 01:47] VITALS: TEMP 97.6
[2021-09-14] MEDS: HYDROmorphone 0.5 MG/0.5 ML SYRINGE IVP PRN ×2 (03:40→06:56)
[2021-09-14] MEDS: HYDROcodone/APAP 7.5-325MG 1 EACH TAB PO PRN ×2 (05:00→10:43)
[2021-09-14] MEDS: ENOXAPARIN 30 MG/0.3 ML SYRINGE SQ SCH (07:56)
[2021-09-14] MEDS: buPROPion SR 150 MG TABLET.ER PO SCH (07:56)
[2021-09-14 08:21] VITALS: BP 119/79; PULSE 73
[2021-09-14 09:19] LABS: Basophils % (A) 0 %; Eosinophils % (A) 0 %; HCT 39.9 % (39.0-53.0); HGB 12.9 gm/dL (13.0-17.5); Lymphocytes # (A) 1.5 k/uL (1.0-4.8); Lymphocytes % (A) 13 %; MCHC 32.4 g/dL (31.0-37.0); MCV 92.3 fL (80.0-100.0); Mean Platelet Volume 7.2; Monocytes # (A) 0.6 k/uL (0-1.0); Monocytes % (A) 5 %; Neutrophils # (A) 9.5 k/uL (1.3-7.7); Neutrophils % (A) 81 %; Platelet Count 241 k/uL (150-450); RBC 4.32 m/uL (4.30-5.90); WBC 11.8 k/uL (3.8-10.6)
--- NOTE | 2021-09-14 09:46 | P.PN ---
Progress Note - Text Progress Note Date: 09/14/21 Patient seen and examined at bedside POD 1 s/p total knee replacement with adductor canal catheter. Patient is sitting up and reports minimal pain. He is able to ambulate and use the restroom without difficulty. The pain he reports pain under his knee that is controlled with oral medication . He is not feeling pain on the top of his knee. He has no motor deficits and sensory deficits are within normal. Site is clean and dry without erythema. Continue pain pump at current rate. Patient denies GOVEA, F/C, parathesias, N/V. Patient is acceptable for discharge when primary team allows.
--- NOTE | 2021-09-14 09:52 | P.DS ---
Providers Date of admission: 09/14/21 00:32 Expected date of discharge: 09/14/21 Attending physician: Leonardo Arreola Primary care physician: Iftikhar Ruggiero Hospital Course: Date of admission: 09/13/2021 Date of discharge: 09/14/2021 Admission diagnosis: Left knee osteoarthritis Discharge diagnosis: Same Attending physician: Dr. Arreola Surgical procedures: Left total knee arthroplasty Brief history: Patient is a 51-year-old male with a history of progressive primary left knee osteoarthritis. At this point patient has failed conservative treatment measures and has opted to proceed with a elective left total knee arthroplasty. Hospital course: Details of patient's surgery can be found in operative report. Patient tolerated the procedure well and was subsequently transported to orthopedic floor. Patient's orthopeidc and medical care was provided daily. Patient had daily laboratory tests performed for evaluation of overall blood counts. Patient had daily physical therapy to include strengthening range of motion as well as education with walker ambulation. Patient was treated with Lovenox for their postoperative DVT prophylaxis during their inpatient stay. Patient was noted to have a relatively uneventful postoperative course. Patient reported satisfactory pain control with oral pain medications by postoperative day 1. Patient showed satisfactory progress with physical therapy. Patient moved steadily through the program and had no difficulty meeting the goals by postoperative day 1. Given patient's otherwise satisfactory course and having met physical therapy goals, plan is to discharge patient home on postoperative day 1. Discharge condition/disposition: Patient will be discharged home in stable condition. Discharge medications: Instructions are given on resumption of patient's normal daily medications per primary care recommendation, in addition patient will be prescribed [place] 7.5 mg/325 mg; Vistaril; Colace; resume Eliquis at home. Discharge instructions: 1. Wound care and infection precautions, keep incision dry and covered while showering, no lotions, creams, moisturizers. No soaking, tubs, pools, hottubs. Do not scrub over the incision. 2. Weight-bear as tolerated with walker / cane until follow-up. 3. Ice and elevate when necessary. Do not exceed 20 minutes per hour with ice pack. 4. Utilize compression sleeve until seen at first follow up appointment. 5. Visiting nursing care. 6. Home physical therapy including home CPM. 7. Pain meds and anticoagulants per prescription. 8. Pain medication has potential to cause constipation. Increase oral fluid and fiber intake. Contact primary care provider if you have not had a bowel movement within 48 hours after discharge 9. No anti-inflammatory medication until discussed at first post operative visit, this including Motrin, Aleve, Mobic, Diclofenac. 10. Follow up in office at 2 weeks postop with Hal Gomez PA-C / Gerhard Reed PA-C 11. Follow up with your primary care doctor 7-10 days after discharge. 12. Contact [facility] with any questions, . Keep incision clean, dry, intact. While showering, cover mesh tape with Saran wrap/plastic bag. Keep mesh tape on until follow-up appointment in 2 weeks Medications: [place] 7.5 mg/325 mg; Vistaril; Colace; resume Eliquis at home. Assessment: Left knee osteoarthritis Procedures: Left total knee arthroplasty Patient Condition at Discharge: Good Plan - Discharge Summary Discharge Rx Participant: Yes New Discharge Prescriptions: New Docusate [Colace] 100 mg PO DAILY #30 capsule HYDROcodone/APAP 7.5-325MG [[place] 7.5] 1 - 2 each PO Q6HR PRN #36 tab PRN Reason: Pain hydrOXYzine pamoate [Vistaril] 25 mg PO Q6HR #30 capsule No Action buPROPion HCL [Wellbutrin SR] 150 mg PO BID Omeprazole [PriLOSEC] 40 mg PO QAM Aspirin 81 mg PO DAILY Apixaban [Eliquis] 5 mg PO BID lisinopriL 2.5 mg PO QAM Discharge Medication List buPROPion HCL [Wellbutrin SR] 150 mg PO BID 11/13/20 [History] Omeprazole [PriLOSEC] 40 mg PO QAM 01/10/21 [History] Apixaban [Eliquis] 5 mg PO BID 09/09/21 [History] Aspirin 81 mg PO DAILY 09/09/21 [History] lisinopriL 2.5 mg PO QAM 09/09/21 [History] Docusate [Colace] 100 mg PO DAILY #30 capsule 09/13/21 [Rx] HYDROcodone/APAP 7.5-325MG [[place] 7.5] 1 - 2 each PO Q6HR PRN #36 tab 09/13/21 [Rx] hydrOXYzine pamoate [Vistaril] 25 mg PO Q6HR #30 capsule 09/14/21 [Rx] Follow up Appointment(s)/Referral(s): Gerhard Reed, PAC [PHYSICIAN PRODUCTION CONTROL EXPEDITER] - 09/29/21 1:50 pm [facility],Equipment [NON-STAFF] - (*Please call [facility] once home to arrange delivery of the Continuous Passive Motion (CPM) machine. ) [facility], [NON-STAFF] - ([facility] will call you to schedule your in home physical therapy and nursing visits. ) Patient Instructions/Handouts: *Surgery [facility] - On-Q Pain Pump Discharge Instructions, *[facility] - (Anesthesia) Discharge Instructions Outpatient Surgery, How to Use an Incentive Spirometer (DC), Knee Replacement (GEN) Activity/Diet/Wound Care/Special Instructions: Orthopedic Discharge Instructions: 1. Wound care and infection precautions, keep incision dry and covered while showering, no lotions, creams, moisturizers. No soaking, pools, hot tubs. Do not scrub over incision. 2. Weight-bear as tolerated with walker / cane until follow-up. 3. Ice and elevate when necessary. Do not exceed 20 minutes per hour with ice pack. 4. Utilize compression sleeve until seen at first follow up appointment. 5. Pain meds and anticoagulants per prescription. 6. Pain medication has potential to cause constipation. Increase oral fluid and fiber intake. Contact primary care provider if you have not had a bowel movement within 48 hours after discharge. 7. No anti-inflammatory medication until discussed at first post operative visit, this including Motrin, Aleve, Mobic, Diclofenac. 8. Follow up in office at 2 weeks postop with Hal Gomez PA-C / Gerhard Reed PA-C 9. Follow up with your primary care doctor 7-10 days after discharge. 10. Contact [facility] with any questions, . Keep incision clean, dry, intact. While showering, cover mesh tape with Saran wrap/plastic bag. Keep mesh tape on until follow-up appointment in office in 2 weeks. Medications: [place] 7.5mg/325 mg 1-2 q6h; Colace 100 mg daily; resume Eliquis at home tomorrow for DVT ppx ON QPUMP hotline Discharge Disposition: HOME WITH HOME HEALTH SERVICES
--- NOTE | 2021-09-14 10:37 | P.PN ---
Subjective Progress Note Date: 09/14/21 Principal diagnosis: Left knee osteoarthritis Patient was seen at bedside this morning resting completely lying semirecumbent in bed icing knee. Patient says he is having moderate knee pain over the front of the knee. Patient says he has not been up yet this morning with physical therapy but is eager to. Patient says he has been using incentive on her. Patient says he has not had a bowel movement yet, however, patient says he has been passing gas. Patient says he does have a walker at home. Patient says he is wanting to go home today. Patient denies chest pain, fever, shortness breath, nausea, vomiting, change in vision, loss of bowel/bladder control. Objective - Vital Signs Vital signs: Vital Signs Temp 97.6 F 09/14/21 08:00 Pulse 73 09/14/21 08:00 Resp 16 09/14/21 08:00 BP 119/79 09/14/21 08:00 Pulse Ox 95 09/14/21 08:00 Intake & Output 09/13/21 09/14/21 09/14/21 18:59 06:59 18:59 Intake Total 2176 750 Output Total 350 600 Balance 1826 150 Weight 93.2 kg Intake: IV 2176 Oral 750 Output: Urine 300 600 Estimated Blood Loss 50 Other: # Voids 1 - Exam Left knee: Incision is clean, dry, and intact. The mesh tape is in good condition. There is minimal soft tissue swelling and ecchymosis surrounding the medial and lateral aspects of the incision. Calf is soft, no tenderness with palpation. Plantar flexion, dorsiflexion, EHL, FHL are intact. Sensory exam to light touch throughout the extremity is intact, dorsal pedis pulses 2+. - Labs CBC & Chem 7: 09/14/21 08:27 Labs: Abnormal Lab Results - Last 24 Hours (Table) 09/14/21 Range/Units 08:27 WBC 11.8 H (3.8-10.6) k/uL Hgb 12.9 L (13.0-17.5) gm/dL Neutrophils # 9.5 H (1.3-7.7) k/uL Assessment and Plan Assessment: 1. Left knee osteoarthritis Postoperative day 1 status post left total knee arthroplasty Plan: 1. Left knee osteoarthritis - left total knee arthroplasty performed yesterday, 09/13/2021. Patient stable at bedside this morning. Plan discharge home today with health services 2. Appreciate medical management 3. Pain management - [place] 7.5 mg/325 mg; Dilaudid only if needed; going home with [place] 7.5 mg/325 mg; Vistaril 4. DVT prophylaxis - Lovenox in hospital; to resume Eliquis once at home 5. GI ppx - Colace 6. Encourage incentive spirometer use 7. PT/OT - WBAT with walker for assistance 8. Discharge planning - discharge home today with health services Time with Patient: Less than 30
== END 2021-09-14 13:38 | disposition home health service (06) ==
LOC: OR 05:57 → 4SSUR 15:24 → OR 09-14 00:32 → 4SSUR 09-14 00:32
PROVIDERS: ADMIT Orthopaedic Surgery; ATTEND Orthopaedic Surgery
DX: M17.12 Unilateral primary osteoarthritis, left knee (principal); Z20.822 Contact with and (suspected) exposure to COVID-19; F17.210 Nicotine dependence, cigarettes, uncomplicated; K21.9 Gastro-esophageal reflux disease without esophagitis; Z88.0 Allergy status to penicillin; Z88.5 Allergy status to narcotic agent; Z91.030 Bee allergy status; Z79.899 Other long term (current) drug therapy; Z86.718 Personal history of other venous thrombosis and embolism; Z79.01 Long term (current) use of anticoagulants
CPT/HCPCS: 27447; 97116; 97162; 64999; 64448; 76942; 85025; 88300; 87635; 73560; G0378; C1713 ×2; C1776; J2250; J1200; J1100; S0106 ×2; J2405; J2001; J3010; J1650 ×2; J1170 ×3; J2795 ×2; J1885; J2370; J0330; J2704

== ENCOUNTER → 2023-09-19 | Day surgery (SDC) | payer OTHER ==
[2023-09-13 12:13] VITALS: BMI 26.4
[~2023-09-19] MED LIST changes: -ACETAMINOPHEN TAB 500 MG TAB PO PRN; +LACTATED RINGERS 1,000 ML IV SCH; +LIDOCAINE 1% (10MG/ML) FOR IV START INTRADERMA PRN; +LIDOCAINE 1% INJ 10MG/ML (20 ML MDV) ONE; -MELOXICAM 7.5 MG TAB PO PRN; +PROPOFOL 10 MG/ML 20 ML VIAL IV ONE; -ROPIVACAINE 246.25 MG, EPINEPHrine 0.5 MG, KETOROLAC (30 mg/mL) 30 MG, cloNIDine HCL/PF... MISCELLANE PRN; -TRANEXAMIC ACID 1,000 MG in SODIUM CHLORIDE 0.9% 100 ML IVPB PRN; +fentaNYL (PF) 50 MCG/ML 2 ML AMP ONE
--- NOTE | 2023-09-19 07:57 | P.GSHP ---
History of Present Illness H&P Date: 09/19/23 CHIEF COMPLAINT: Colon screen HISTORY OF PRESENT ILLNESS: The patient is a 53-year-old male who presents for colon screen. Lower endoscopy was offered for further evaluation and management. PAST MEDICAL HISTORY: Please see list. PAST SURGICAL HISTORY: Please see list. MEDICATIONS: Please see list. ALLERGIES: Please see list. SOCIAL HISTORY: No illicit drug use FAMILY HISTORY: No reports of Crohn disease or ulcerative colitis. REVIEW OF ORGAN SYSTEMS: CONSTITUTIONAL: No reports of fevers or chills. PHYSICAL EXAM: VITAL SIGNS: Stable GENERAL: Well-developed pleasant in no acute distress. HEENT: No scleral icterus. Extraocular movements grossly intact. Moist buccal mucosa. NECK: Supple without lymphadenopathy. CHEST: Unlabored respirations. Equal bilateral excursions. CARDIOVASCULAR: Regular rate and rhythm. Distal 2+ pulses. ABDOMEN: Soft, nontender, nondistended. MUSCULOSKELETAL: No clubbing, cyanosis, or edema. ASSESSMENT: 1. Colon screen. PLAN: 1. Recommend proceeding with a lower endoscopy Past Medical History Past Medical History: Osteoarthritis (OA) Additional Past Medical History / Comment(s): Cyst on scrotum removed History of Any Multi-Drug Resistant Organisms: MRSA Date of last positivie culture/infection: 2012 MDRO Source:: axilla Past Surgical History: Hernia Repair, Orthopedic Surgery Additional Past Surgical History / Comment(s): Surgery for twisted testicule, left knee surgery, right ankle surgery, cyst removed from scrotum, MRSA removed armpit in 2012., colonoscopy polyps Past Anesthesia/Blood Transfusion Reactions: No Reported Reaction Additional Past Anesthesia/Blood Transfusion Reaction / Comment(s): no blood transfusion Smoking Status: Current every day smoker - Past Family History Father Family Medical History: No Reported History Medications and Allergies Home Medications Medication Instructions Recorded Confirmed Type No Known Home Medications 09/13/23 09/13/23 History Allergies Allergy/AdvReac Type Severity Reaction Status Date / Time bee venom protein (honey bee) Allergy Unknown Verified 09/13/23 12:02 Penicillins Allergy Unknown Verified 09/13/23 12:02 morphine AdvReac Headache Verified 09/13/23 12:02
[2023-09-19 09:16] VITALS: TEMP 97.9
--- NOTE | 2023-09-19 10:33 | P.PCN ---
Date of Procedure: 09/19/23 Description of Procedure: PREOPERATIVE DIAGNOSIS: Personal history of colon polyps Colonoscopy screening POSTOPERATIVE DIAGNOSIS: Tubular adenoma rectum Sigmoid diverticulosis Internal hemorrhoids, grade 2 OPERATION: Colonoscopy to the ileocecal valve and appendiceal orifice, cecum Colonoscopy with cold forceps biopsy SURGEON: Clare Conn MD. ANESTHESIA: MAC. INDICATIONS: The patient is an 53-year-old male who presents personal history of colon polyps. Last colonoscopy 5 years. Benefits and risks were described and informed consent was obtained. DESCRIPTION OF PROCEDURE: The patient had undergone GoLYTELY prep. The patient had been brought into the operating room and laid in the left lateral decubitus position. After adequate intravenous sedation, the rectum was examined with 2% lidocaine jelly. The prostate was unremarkable. External hemorrhoids were encountered. The rectal tone was within normal limits. No lesions were palpated in the rectal vault. An Olympus colonoscope was advanced until the cecum, ileocecal valve and appendiceal orifice were clearly viewed. The prep was fair. Sigmoid diverticulosis was encountered. Colonic polyps were found and removed. No evidence of focal colitis was found. Retroflexion of the scope demonstrated grade 2 internal hemorrhoids without active bleeding or inflammation. The colon was desufflated. The patient had tolerated the procedure well. Withdrawal time was over 6 minutes. FINDINGS: Aronchick preparation quality scale 3 (1-5) Internal hemorrhoids, grade 2 External hemorrhoids, grade 2. No arteriovenous malformations. Sigmoid diverticulosis Removal of 2 polyps: - Cold forceps biopsy at 20 cm from the anal verge 2, 3 to 4 mm polyps, rectum. No focal colitis. RECOMMENDATIONS: Repeat colonoscopy in 3 years2025 Plan - Discharge Summary Discharge Rx Participant: No New Discharge Prescriptions: Continue No Known Home Medications Discharge Medication List No Known Home Medications 09/13/23 [History] Follow up Appointment(s)/Referral(s): Clare Conn MD [STAFF PHYSICIAN] - As Needed Patient Instructions/Handouts: *Surgery [facility] - (Anesthesia) Discharge I nstructions Outpatient Surgery, Colonoscopy (DC), Diverticulosis (DC), Diverticulitis Diet (GEN), Colorectal Polyps (GEN) Activity/Diet/Wound Care/Special Instructions: Repeat colonoscopy 3 years2025 Discharge Disposition: HOME SELF-CARE
[2023-09-19 11:01] VITALS: BP 98/61; PULSE 50; RESP 20
== END | disposition home or self-care (01) ==
LOC: ORWHC2ENDO 08:40
PROVIDERS: ATTEND Surgery Plastic and Reconstructive Surgery
DX: Z12.11 Encounter for screening for malignant neoplasm of colon (principal); K62.1 Rectal polyp; K57.30 Diverticulosis of large intestine without perforation or abscess without bleeding; K64.1 Second degree hemorrhoids; M19.90 Unspecified osteoarthritis, unspecified site; F17.200 Nicotine dependence, unspecified, uncomplicated; Z86.010 Personal history of colon polyps; Z98.890 Other specified postprocedural states; Z91.030 Bee allergy status; Z88.0 Allergy status to penicillin; Z88.5 Allergy status to narcotic agent
CPT/HCPCS: 45380; J2001; J3010; J2704; 88305

== ENCOUNTER → 2023-10-25 | Outpatient (CLI) | payer OTHER ==
[2023-10-25 12:57] LABS: INR 1.1 (<1.2); Partial Thromboplastin Time 24.3 sec (22.0-30.0); Prothrombin Time 11.7 sec (10.0-12.5)
[2023-10-25 15:16] LABS: Basophils # (A) 0.03 X 10*3/uL (0.00-0.10); Basophils % (A) 0.2 %; Eosinophils # (A) 0.03 X 10*3/uL (0.04-0.35); Eosinophils % (A) 0.2 %; HCT 44.9 % (39.6-50.0); HGB 15.2 g/dL (13.0-17.0); Lymphocytes # (A) 1.11 X 10*3/uL (0.90-5.00); Lymphocytes % (A) 8.6 %; MCH 29.9 pg (27.0-32.0); MCHC 33.9 g/dL (32.0-37.0); MCV 88.4 FL (80.0-97.0); Monocytes # (A) 0.47 X 10*3/uL (0.20-1.00); Monocytes % (A) 3.6 %; NRBC Per 100 WBC 0 X 10*3/uL (0.00-0.01); Neutrophils # (A) 11.18 X 10*3/uL (1.80-7.70); Neutrophils % (A) 86.9 %; Platelet Count 344 X 10*3/uL (140-440); RBC 5.08 X 10*6/uL (4.40-5.60); RDW 13.2 % (11.5-14.5); WBC 12.88 X 10*3/uL (4.50-10.00)
[2023-10-25 15:28] LABS: Blood Urea Nitrogen 11.6 mg/dL (9.0-27.0); Carbon Dioxide 24.4 mmol/L (21.6-31.8); Chloride 101 mmol/L (96-109); Glucose 102 mg/dL (70-110); Potassium 4.3 mmol/L (3.5-5.5); Sodium 137 mmol/L (135-145)
== END | disposition home or self-care (01) ==
LOC: LABPAT 11:41
PROVIDERS: ATTEND Thoracic Surgery (Cardiothoracic Vascular Surgery)
DX: Z01.812 Encounter for preprocedural laboratory examination (principal); I71.20 Thoracic aortic aneurysm, without rupture, unspecified; E86.0 Dehydration; R58 Hemorrhage, not elsewhere classified; Z79.899 Other long term (current) drug therapy
CPT/HCPCS: 36415; 80051; 82565; 82947; 84520; 85025; 85610; 85730

== ENCOUNTER → 2023-11-20 | Outpatient (CLI) | payer OTHER ==
--- NOTE | 2023-11-20 12:48 | CT ---
EXAMINATION TYPE: CT angio thor/abd pel aorta DATE OF EXAM: 11/20/2023 COMPARISON: None HISTORY: abdominal aortic aneurysm x [address] DLP: 702.9 mGycm Automated exposure control for dose reduction was used. Contrast: 100 mL Isovue-370 Technique: Axial images 5 mm thick sections. The pre and postcontrast imaging was performed. Three-D reconstructed images performed on a separate computer by the technologist are presented and reviewed. FINDINGS: There is a three-vessel arch. The ascending thoracic aorta aortic arch and descending thoracic aorta appear unremarkable. Abdominal aorta tapers normally through its visualized course. Celiac axis and s uperior mesenteric arteries are normal. Renal arteries appear normal. Aortic bifurcation appears unre markable. Internal and external iliac vessels are patent. Common femoral arteries are patent. Profund a femoris and superficial femoral arteries are patent. Mild atheromatous plaque is in the distal abdominal aorta. CT CHEST: The ascending thoracic aorta at the main pulmonary artery is 8.1 cm. Main pulmonary artery at the bifurcation is 2.3 cm. Some pulmonary fibrosis is along the left major fissure. Lung windows o therwise appear clear. CT ABDOMEN: Liver spleen pancreas adrenal glands and kidneys as visualized in the early arterial phas e are unremarkable. Loops of bowel without contrast appear unremarkable. Inferior vena cava is unrema rkable. CT PELVIS: Loops of bowel within the pelvis are unremarkable. Urinary bladder is normal. Prostate madison ears normal. IMPRESSION: 1. UNREMARKABLE CT THORACIC AND ABDOMINAL AORTA AND PROXIMAL BRANCHES. NO ANEURYSM OR STENOSIS.
== END | disposition home or self-care (01) ==
LOC: RADCTMAIN 11:02
PROVIDERS: ATTEND Thoracic Surgery (Cardiothoracic Vascular Surgery)
DX: I71.40 Abdominal aortic aneurysm, without rupture, unspecified (principal)
CPT/HCPCS: 71275; 74174; Q9967